=== PATIENT | male | born 2005 | race Caucasian/White ===

== ENCOUNTER 2025-10-16 15:47 | Outpatient (OUT) | payer OTHER, SELFPAY ==
--- OUTSIDE RECORDS SUMMARY | 2025-10-09 17:17 | XMS_ITS | Encounter Summary ---
Author Organization [facility] [employer] [facility] tem Address [id number] [address] [place] [address] Care Team Providers Care Gore Seamer Name Role Phone Julian Carroll MD Primary Care Provider Reason for Visit * ReasonCommentsFall Encounter Details DateTypeDepartmentCare Team (Latest Contact Info)Xfscltoipui31/25/2025 5:17 PM EST - 10/09/2025 6:41 PM [facility] [address] [place] [phone] Closed fracture of nasal bone, initial encounter (Primary Dx); Effusion of right knee Discharge Disposition: Home Social History Tobacco UseTypesPacks/DayYears UsedDateSmoking Tobacco: NeverSmokeless Tobacco: NeverAlcohol UseStandard Drinks/WeekCommentsNever0 (1 standard drink = 0.6 oz pure alcohol)AUDIT-CAnswerDate RecordedFrequency of Alcohol ConsumptionNever 08/03/2019Average Number of DrinksNot on file08/03/2019Frequency of Binge DrinkingNot on file08/03/2019ChildcareAnswerDate RecordedChildcareUnknown 04/24/2019EmploymentAnswerDate YvlgsygmQpdtvgnquoAepavtm84/10/2019Hunger ScreeningAnswerDate RecordedWithin the past 12 months we worried whether our food would run out before we got money to buy more.Never True10/09/2025Within the past 12 months the food we bought just didn't last and we didn't have money to get more.Never True10/09/2025Purpose - LifeAnswerDate RecordedPurpose and direction in vmrsHtvmcbv85/10/2021ex and Gender InformationValueDate Recorded Sex Assigned at BirthNot on fileLegal LyuBrvs2506/18/2015 2:22 PM EDTGender IdentityNot on fileSexual OrientationNot on filedocumented as of this encounter Last Filed Vital Signs Vital SignReadingTime TakenCommentsBlood Oebxbnyq228/7610/09/2025 6:30 PM EST Pingb317510/09/2025 6:30 PM VFLByojuhjwmqe10.5 ??C (97.7 ??F)10/09/2025 5:22 PM ESTRespiratory Txbf656812/09/2024 6:30 PM ESTOxygen Qurpozitrx55%10/09/2025 6:30 PM ESTInhaled Oxygen Concentration--Vnrjrm34.4 kg (214 lb 11.2 oz)10/09/2025 5:22 PM ZJBQafsbs401.7 cm (6' 7 )10/09/2025 5:22 PM ESTBody Mass Index24.19 10/09/2025 5:22 PM ESTdocumented in this encounter Discharge Instructions * Discharge Instructions* CORNELIUS Nieto - 10/09/2025 6:31 PM EST Thank you for choosing us for your medical care. We know you have a choice, and we appreciate you choosing us for your medical concerns! You may receive a survey from the hospital about your visit. We very much appreciate your comments and concerns. Please read all medication insert instructions and side effects when dispensed by the pharmacy. Every medication has side effects, and you may experience any of them. Please call the emergency room with any questions or concerns you have. Please call your doctor for outpatient follow up and recommendations. The emergency room cannot replace ongoing care, and it is important for your personal physician to evaluate you and monitor your health. Return to the ER for increased pain, fever > 101.5, vomiting twice, or any concern you deem emergent. Oliva Kitchen CNP documented in this encounter ED Notes * CORNELIUS Nieto - 10/09/2025 5:22 PM EST Images from the original note were not included. [facility] Pt Name: Lance Marie Birthdate: 2005 Chief Complaint: Chief Complaint Patient presents with ??? Fall History of Present Illness: Lance Marie is a 20-year-old male that presents to ED with complaint of nose pain and right kneepain. 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 He states he started to feel lightheaded in like he was going to pass out so he came to the nurse's station. He states then he went to the bathroom to/cold wate r on himself. He states he then sat down to use the restroom and he woke up face down on the ground. Staff was able to assist him to a room. He states he felt like he had another syncopal event then.He was watch for awhile then discharged to go home. History provided by: Patient geography faculty member used: No Past Medical History: Past Medical History: Diagnosis Date ??? Syncopal episodes 06/2019 Past Surgical History: Past Surgical History: Procedure Laterality Date ??? CIRCUMCISION ??? INGUINAL HERNIA REPAIR Family History: Family History Problem Relation Age of Onset ??? Thyroid Issues Mother ??? Migraines Mother ??? Down syndrome Maternal Aunt ??? Stroke Maternal Aunt ??? Thyroid Issues Maternal Aunt ??? Hypertension Maternal Grandmother ??? High Cholesterol Maternal Grandmother ??? Hypertension Maternal Grandfather ??? High Cholesterol Maternal Grandfather ??? Arrhythmia Paternal Grandmother pacer ??? Heart defect Neg Hx ??? Seizures Neg Hx ??? Diabetes Neg Hx ??? Asthma Neg Hx ??? Heart attack Neg Hx ??? Sudden Neg Hx ??? Clotting disorder Neg Hx Social History: Social History Socioeconomic History ??? Marital status: Single Tobacco Use ??? Smoking status: Never ??? Smokeless tobacco: Never Vaping Use ??? Vaping status: Never Used Substance and Sexual Activity ??? Alcohol use: Never ??? Drug use: Never ??? Sexual activity: Defer Other Topics Concern ??? Caffeine Use No Social Drivers of Health Food Insecurity: No Food Insecurity (10/09/2025) Hunger Screening ??? Food Insecurity - Worry: Never True ??? Food Insecurity - Inability: Never True Interpersonal Safety: Not At Risk (10/11/2022) Humiliation, Afraid, Rape, and Kick questionnaire ??? Fear of Current or Ex-Partner: No ??? Emotionally Abused: No ??? Physically Abused: No ??? Sexually Abused: No Review of Systems: Review of Systems Constitutional: Negative for chills and fever. HENT: Negative for ear pain. Nasal pain Eyes: Negative for pain. Respiratory: Negative for shortness of breath. Cardiovascular: Negative for chest pain/discomfort. Gastrointestinal: Negative for abdominal pain, diarrhea, nausea and vomiting. Genitourinary: Negative for flank pain. Musculoskeletal: Negative for back pain. Skin: Negative for rash. Neurological: Negative for headaches. Psychiatric/Behavioral: Negative for sleep disturbance and suicidal ideas. Physical Exam: ED Triage Vitals Temp Pulse Resp BP SpO2 -- -- -- -- -- Temp src Heart Rate Source Patient Position BP Location FiO2 (%) -- -- -- -- -- Vitals: 10/09/25 1722 BP: (!) 138/93 Temp: 36.5 ??C (97.7 ??F) TempSrc: Oral Pulse: 54 Resp: 18 SpO2: 99% MAP (mmHg): 111 Height: 200.7 cm (6' 7 ) Weight: 97.4 kg (214 lb 11.2 oz) Physical Exam Vitals reviewed. HENT: Head: Normocephalic and atraumatic. Nose: Nasal tenderness present. Comments: Nasal swelling Eyes: Conjunctiva/sclera: Conjunctivae normal. Cardiovascular: Rate and Rhythm: Normal rate. Pulmonary: Effort: Pulmonary effort is normal. Breath sounds: Normal breath sounds. Abdominal: General: There is no distension. Palpations: Abdomen is soft. Musculoskeletal: General: Normal range of motion. Cervical back: Normal range of motion and neck supple. Right knee: Tenderness present. Skin: General: Skin is warm and dry. Neurological: General: No focal deficit present. Mental Status: He is alert and oriented to person, place, and time. GCS: GCS eye subscore is 4. GCS verbal subscore is 5. GCS motor subscore is 6. Procedure: Procedures Re-evaluation: Re-Evaluation Medical Decision Making Plan of care - CT facial bones Amount and/or Complexity of Data Reviewed Radiology: ordered. Decision-making details documented in ED Course. ED Course: Clinical Impressions as of 10/09/251830 Closed fracture of nasal bone, initial encounter Effusion of right knee . ED Disposition None DAYANNA Supervision Only Supervising Physician was Dr. Keisha Garner Please note that portions of this note were completed with a voice recognition program. Efforts were made to edit the dictations but occasionally words are mis-transcribed. CORNELIUS Nieto 10/09/25 1727 CORNELIUS Nieto 10/09/25 173 CORNELIUS Nieto 10/09/251947 * Maira Menendez RN - 10/09/2025 5:21 PM EST Pt states he was watching procedure and began feeling dizzy yesterday. Pt states that he went to bathroom and woke up after falling on ground with hurt nose. documented in this encounter Plan of Treatment Not on file documented as of this encounter Procedures Procedure NamePriorityDate/TimeAssociated DiagnosisCommentsCT FACIAL BONES WO AHGXMJDD06/25/2025 6:15 PM EST XR KNEE RT 3 IHRZWQV35/25/2025 6:12 PM EST documented in this encounter Results * CT facial bones without contrast (10/09/2025 6:15 PM EST)Anatomical Region LateralityModalityNeuro, Face, Neuro CoveraN/AComputed TomographySpecimen (Source)Anatomical Location / LateralityCollection Method / VolumeCollection TimeReceived Time10/09/2025 6:16 PM EST Narrative 10/09/2025 6:26 PM EST EXAM: MAXILLOFACIAL CT WITHOUT CONTRAST CLINICAL INFORMATION: Fall. TECHNIQUE: Maxillofacial CT was performed without contrast utilizing thin section imaging with coronal and sagittal reformatted images obtained and reviewed. Automated exposure control was utilized. COMPARISON: None. FINDINGS: There are acute minimally displaced nasal bone fractures. No additional convincing maxillofacial fractures are identified. There is moderate lobulated mucosal thickening lining the maxillary sinuses.There is mild nonaggressive mucosal thickening within the ethmoids. There is minimal nonaggressive mucosal thickening lining the sphenoid sinuses. The frontal sinuses are clear and well aerated. There is no evidence for osseous remodeling. The middle and inferior turbinates are unremarkable. Thereis no significant deviation of the nasal septum. The visualized mastoids are clear. IMPRESSION: 1. Acute minimally displaced nasal bone fractures. 2. Moderate paranasal sinus disease, as above. All CT scans at this facility use dose modulation, iterative reconstruction, and/or weight based dosing when appropriate to reduce radiation dose to as low as reasonably achievable. Finalized by Sylvester Shabazz MD on 10/09/2025 6:26 PM Procedure Note Sylvester Shabazz MD - 10/09/2025 EXAM: MAXILLOFACIAL CT WITHOUT CONTRAST CLINICAL INFORMATION: Fall. TECHNIQUE: Maxillofacial CT was performed without contrast utilizing thinsection imaging with coronal and sagittal reformatted images obtained andreviewed. Automated exposure control was utilized. COMPARISON: None. FINDINGS: There are acute minimally displaced nasal bone fractures. No additional convincing maxillofacial fractures are identified. There is moderatelobulated mucosal thickening lining the maxillary sinuses. There is mildnonaggressive mucosal thickening within the ethmoids. There is minimalnonaggressive mucosal thickening lining the sphenoid sinuses. The frontal sinuses areclear and well aerated. There is no evidence for osseous remodeling. Themiddle and inferior turbinates are unremarkable. There is no significantdeviation of the nasal septum. The visualized mastoids are clear. IMPRESSION: 1. Acute minimally displaced nasal bone fractures. 2. Moderate paranasal sinus disease, as above. All CT scans at this facility use dose modulation, iterativereconstruction, and/or weight based dosing when appropriate to reduceradiation dose to as low as reasonably achievable. Finalized by Sylvester Shabazz MD on 10/09/2025 6:26 PM Authorizing ProviderResult TypeResult StatusAmber Kitchen MINILAB OPERATOR-CNPIMG CT ORDERABLESFinal Result * X-ray knee right 3 views (10/09/2025 6:12 PM EST)Anatomical RegionLaterality ModalityLower Extremities, MSK, KneeRightComputed RadiographySpecimen (Source) Anatomical Location / LateralityCollection Method / VolumeCollection Time Received Time10/09/2025 6:14 PM EST Narrative 10/09/2025 6:15 PM EST Clinical history: Status post fall, right knee trauma and pain. Comparisons: None Findings: 3 views right knee obtained. Joint spaces are preserved. There is no malalignment. No acute fracture. There is some ill-defined soft tissue stranding within Hoffa's fat pad and I suspect there is a small joint effusion. IMPRESSION: 1. No fracture nor malalignment right knee. 2. Suspect small joint effusion. There is also some soft tissue stranding with some office fat pad;clinical correlation for internal arrangement recommended. Finalized by Juan Nieto MD on 10/09/2025 6:15 PM Procedure Note Juan Nieto MD - 10/09/2025 Clinical history: Status post fall, right knee trauma and pain. Comparisons: None Findings: 3 views right knee obtained. Joint spaces are preserved. Thereis no malalignment. No acute fracture. There is some ill-defined softtissue stranding within Hoffa's fat pad and I suspect there is a smalljoint effusion. IMPRESSION: 1. No fracture nor malalignment right knee. 2. Suspect small joint effusion. There is also some soft tissue strandingwith some office fat pad; clinical correlation for internal arrangementrecommended. Finalized by Juan Nieto MD on 10/09/2025 6:15 PM Authorizing ProviderResult TypeResult StatusAmber Kitchen MINILAB OPERATOR-CNPIMG DIAGNOSTIC IMAGING ORDERABLESFinal Result documented in this encounter Visit Diagnoses Diagnosis Closed fracture of nasal bone, initial encounter- Primary Effusion of right knee documented in this encounter Care Teams Team MemberRelationshipSpecialtyStart DateEnd Date Julian Carroll MD [address] [place] [id number] PCP - GeneralFamily Medicine07/21/19documented as of this encounter
--- NOTE | 2025-10-16 | ECG_ITS ---
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 Measurements Intervals [place] Rate: 50 P: 0 AL: 149 QRS: 87 QRSD: 109 T: 66 QT: 409 QTc: 376 Interpretive Statements SINUS BRADYCARDIA INCOMPLETE RIGHT BUNDLE BRANCH BLOCK [90+ ms QRS DURATION, TERMINAL R IN V1/V2, 40+ ms S IN I/aVL/V4/V5/V6] Compared to ECG 10/11/2022 03:55:33 Incomplete right bundle-branch block now present Q waves no longer present Electronically Signed On 10-17-2025 19:47:38 EST by AL GARCIA M.D.
--- OUTSIDE RECORDS SUMMARY | 2025-10-16 09:24 | XMS_ITS | Continuity of Care Document ---
Author Organization [facility] Address [address] [place] [address] Phone Care Team Providers Care Mail Order Biller Name Role Phone Julian Carroll MD Primary Care Provider [phone] Julian Carroll MD Attending Provider [phone] Danial Lopez Attending Provider Unavailable Care Teams Patient Care Team Team Status: Active Member Role/Relationship Status Dates Julian Carroll MD Primary Care Provider Active Visit Care Team Team Status: Inactive Member Role/Relationship Status Dates Julian Carroll MD Primary Care Provider Active S tart: August 16, 2025 End: August 16, 2025Tammi Wall ProviderActiveStart: August 16, 2025 End: August 16, 2025 Visit Care Team Team Status: Active Member Role/Relationship Status Dates Julian Carroll MD Primary Care Provider Active S tart: October 10, 2025 Tammi Wall ProviderActiveStart: October 10, 2025 Visit Care Team Team Status: Active Member Role/Relationship Status Dates Julian Carroll MD Primary Care Provider Active S tart: October 10, 2025 Danial LopezAttemely ProviderActiveStart: October 10, 2025 Patient Care Team Team Status: Inactive Member Role/Relationship Status Dates Julian Carroll MD Primary Care Provider Active S tart: October 16, 2025 End: October 16, 2025Tammi Wall ProviderActiveStart: October 16, 2025 End: October 16, 2025 Chief Complaint and Reason for Visit Chief Complaint Admit Date est patient August 16, 2025 3: 08pm Referral Order October 10, 2025 1:54pm Amb Documentation October 10, 2025 1:58pm lightheaded from broken nose over a week ago October 16, 2025 1:45pm Reason for Visit Admit Date Annual physical exam August 16, 2025 3 :08pm Reason for Referral Type Reason(s) Provider Provider Contact Information P hansavider Address Start Date Closed fracture of nasal bone S02.2XXA - Fracture of nasal bones, initial encounter for closed fracture S02.2XXA - Fracture of nasal bones, initial encounter for closed fractureHANNARY ZACHARY GONZALEZ ORDER- MULTIPLE OFFICES [facility] 2024 Allergies, Adverse Reactions, Alerts Allergen Type Severity Reaction Last Updated Verified Status No Known Allergies Allergy Unknown August 16, 2025 2:13pmYesActive Social History Smoking Status Status Start Date End Date Date of Observa tion Never smoked tobacco (finding) August 16, 2025 3:14pm Observation Status Observation Response Date of Response Legal Sex Male (finding) Sex Assigned At [facility] 2004 Problems Active Problems Problem Diagnosis/Recorded Date Onset Date Stat us Nasal bones, closed fracture October 10, 2025 1:54p m Unknown Active 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 August 15, 2025 1:21pm Unknown Active Chronic migraine without aur a without status migrainosus, not intractable August 15, 2025 1:21pm Unknown Active Allergic rhinitis due to pollen August 15, 2025 1:21 pm Unknown Active Annual physical exam August 16, 2025 2:45pm Unknown Active Inactive/Resolved Problems Problem Diagnosis/Recorded Date Onset Date Stat us Pain in thumb joint with mov ement of left hand October 31, 2024 12:32pm Unknown Resolved Sialadenitis August 15, 2025 1:22pm Unknown Res olved Left thumb sprain October 31, 2024 1:01pm Unknown Resolved Medications Medication Status Dose Units Route Directions Qty Days Refills S tart Date Stop Date End Date Reason(s) Instructions Adherence Wrist Brace With Thumb Spica unit Active 0 .Qwzjl28Nwyutdzf 2023 12:00amAs directedNaproxen 500 mg tabletDiscontinued 500MGPOTwice daily as needed for usay68577Sihcdxnz 2023 12:00amOctober 2024 1:22pm Vital Signs Vital Reading Result Reference Range Collection Date/Time Height 79 [in_i] August 16, 2025 2:05ohOqtlwk88.67 kgOct2024 2:11pmBody Temperature 98.6 [degF]97.6-99.0Oct2024 2:11pmHeart Rate62 /iuy46-999Notbldh 2nd, 2025 2:11pmRespiratory rate18 /bvf72-85Rsuoxnz 2nd, 2025 2:11pmOxygen saturation by Pulse mwppxefz99 %95-100Oct2024 2:11pmBP Atwcelmb317 mm[Hg]100-140 August 16, 2025 2:11pmBP Zepjmldjl93 mm[Hg]60-100Oct2024 2:11pmBMI (Body Mass Index)24.0 kg/i1Vpeurnn2024 2:11pm Advance Directives Advance Directive Response Recorded Date/ Time Advance Directives No October 11:47am Insurance Providers Guarantor Lance Tejada Mcmaster Address [address] [place] [place] [address]Dpqzhsu Info.Home Phone: Coverage Status Update:2024 Payer Group Member ID Coverage Type Subscriber Relationship to Subscriber Effective Date Expiration Date [facility] Id: [id number] [address] [place] [address] Home Phone: Email: [email or web address] Encounters Encounter Location(s) Arrival/Admit Date Discharge/Departure Date Discharge/Departure Disposition Provider(s) Departed Physician/ Provider Office Visit -[facility] Family Medicine Vitor August 16, 2025 3:08pm August 16, 2025 3:42pm Discharged to home care or self care (routine discharge) Julian Carroll MD Non-patient / Non-visit -[facility] Professional Co N ovember 2024 1:54pm Julian Carroll MDNon-patient / Iea-rieiy-IKN Family Medicine HéctorKareem 2024 1:58pmSaisaac LopezDebilly Physician/Provider Office Visit-[facility] Family Medicine Iza 2024 1:45pmDecember 2024 2:22pmDischarged to home care or self care (routine discharge)Julian Carroll MD Recent Diagnosis Onset Date Admit Date Annual physical exam Unknown August 3:08pm Assessments Diagnosis Onset Date Resolution Status Admit Date Annual physical exam acuteOctober 2024 3:08pm Plan of Treatment Author Julian Carroll [facility] HospitalAuthoredOctober 2024 2:46pmForm completed for school. Titers for hep B negative and will need repeat vaccine series then titers. Discussed proper diet and regular aerobic exercise.?? Need aerobic exercise 5-6 days a week for 30 minutes at a time.?? Smaller portions and limit total calories.?? Colonoscopy after age 45.?? Tetanus every 10 years.?? Advised not to smoke.?? Future Tests Future scheduled test information is unavailable Pending Tests Pending diagnostic test information is unavailable Future Visits Future appointment information is unavailable Future Procedures Future procedure information is unavailable Future Medications Future medication information is unavailable Patient Instructions Patient instructions are unavailable
--- OUTSIDE RECORDS SUMMARY | 2025-10-16 14:40 | XMS_ITS | Encounter Summary ---
Author Organization [facility] Address [address] [place] [address] Care Team Providers Care Fitness Professional Name Role Phone Julian Carroll MD Primary Care Provider [phone] Reason for Visit * ReasonCommentsNose ProblemNasal bone fracture ER/CT [facility] 10/09/25 * Consultation (Routine) - ClosedSpecialtyDiagnoses / ProceduresReferred By ContactReferred To ContactOtolaryngology Diagnoses Nasal bones, closed fracture Procedures [place] [facility] Julian Carroll MD [address] [place] [address] Phone: tel: fax: Carina Smith MD [address] [place] [address] Phone: tel: fax: Referral IDStatusReasonStart DateExpiration DateVisits RequestedVisits [id number]/26/20255/ Encounter Details DateTypeDepartmentCare Team (Latest Contact Info)Cwfxzuhcyxm82/02/2025 2:40 PM ESTOffice Visit [facility] [address] [facility] [address] [place] [address] Carina Smith MD 112 [facility] [address] [place] [address] Closed fracture of nasal bone, initial encounter (Primary Dx); Vasovagal syncope; Hypertension, unspecified type Social History Tobacco UseTypesPacks/DayYears UsedDateSmoking Tobacco: NeverSmokeless Tobacco: NeverSex and Gender InformationValueDate RecordedSex Assigned at BirthNot on fileLegal JkhQnyi4901/27/2023 6:48 PM EDTGender IdentityNot on fileSexual OrientationNot on filedocumented as of this encounter Last Filed Vital Signs Vital SignReadingTime TakenCommentsBlood Rwonaajt247/2953710/16/2025 2:33 PM EST Oqvyn938810/16/2025 2:33 PM ESTTemperature--Respiratory Rate--Oxygen Saturation-- Inhaled Oxygen Concentration--Vxhwhr42.6 kg (213 lb)10/16/2025 2:33 PM ESTHeight 200.7 cm (6' 7 )10/16/2025 2:33 PM ESTBody Mass Idpuw586710/16/2025 2:33 PM EST documented in this encounter Progress Notes * Carina Smith MD - 10/16/2025 2:40 PM EST Subjective Patient ID: Lance Marie is a 20 y.o. male who presents for Nose Problem (Nasal bone fracture ER/CT [facility] 10/09/25) Pt reports 10/08 pt was sitting at work in the [facility] ED and passed out striking his face. Pt has a h/o frequent passing out in the past. Had an extensive cardiac W/U that revealed no sig abnormality. Had not passed out for [address] maxillofacial obtained that shows a mildly displaced nasal fx to the left. Mildly congested. Pt feels nose more deviated Review of Systems All other systems reviewed and are negative. Family History[1] Active Ambulatory Problems Diagnosis Date Noted Adolescent idiopathic scoliosis of thoracic region 03/21/2024 Chronic migraine without aura without status migrainosus, not intractable 03/21/2024 Allergic rhinitis due to pollen 03/21/2024 Sialadenitis 03/21/2024 Annual physical exam 2025 Left thumb sprain 10/15/2025 Nasal bones, closed fracture 10/15/2025 Pain in thumb joint with movement of left hand 10/15/2025 Resolved Ambulatory Problems Diagnosis Date Noted No Resolved Ambulatory Problems Past Medical History: Diagnosis Date Fracture of nasal bones Surgical History[2] Allergies[3] Medications Ordered Prior to Encounter[4] Objective Last Recorded Vitals Vitals: 10/16/25 1433 BP: (!) 137/113 Pulse: 56 ENT Physical Exam Constitutional Appearance: patient appears well-developed and well-nourished, Head and Face Appearance: head appears normal; Ear Ear comments: Codey ears normal Nose External Nose: nares patent bilaterally; nasal deformity visible; Internal Nose: nasal mucosa normal; Nose comments: Nose displaced to the left. No septal hematoma Oral Cavity/Oropharynx Lips: normal; Teeth: normal; Gums: gingiva normal; Tongue: normal; Oral mucosa: normal; Hard palate: normal; Neck Neck: neck normal; neck palpation normal; Thyroid: thyroid normal; Respiratory Inspection: breathing unlabored; normal breathing rate; Auscultation: breath sounds are clear; Cardiovascular Inspection: extremities are warm and well perfused; no peripheral edema present; Auscultation: regular rate and rhythm; Assessment/Plan Diagnoses and all orders for this visit: Closed fracture of nasal bone, initial encounter Pt has a displaced nasal fx. We will plan a closed reduction of nasal fracture. Pt expresses understanding that there could be some residual deformity and he may want a rhinoplasty in the future. Addan EKG due to syncopal episode and elevated BP. Pt has appt with PCP tomorrow to address BP [1] No family history on file. [2] Past Surgical History: Procedure Laterality Date CT ANGIOGRAM HEART CORONARY 07/22/2023 CT ANGIOGRAM HEART CORONARY 07/22/2023 HERNIA REPAIR 2018 MR ANGIOGRAM HEAD WO IV CONTRAST 09/07/2019 MR ANGIOGRAM HEAD WO IV CONTRAST 09/07/2019 [3] No Known Allergies [4] Current Outpatient Medications on File Prior to Visit Medication Sig Dispense Refill ondansetron (Zofran) 4 MG tablet Take by mouth No current facility-administered medications on file prior to visit. documented in this encounter Miscellaneous Notes * Addendum Note - Luna Chairez MA - 10/16/2025 2:40 PM ESTAddended by: LUNA CHAIREZ on: 10/16/2025 03:31 PM Modules accepted: Orders documented in this encounter Plan of Treatment NameTypePriorityAssociated DiagnosesOrder ScheduleCBC and differentialLabRoutine Closed fracture of nasal bone, initial encounter Expected: 10/16/2025 (Approximate), Expires: 10/16/2026ECG 12 leadECGRoutine Closed fracture of nasal bone, initial encounter Expected: 10/16/2025 (Approximate), Expires: 10/16/2026documented as of this encounter Visit Diagnoses Diagnosis Closed fracture of nasal bone, initial encounter- Primary Vasovagal syncope Syncope and collapse Hypertension, unspecified type documented in this encounter Care Teams Team MemberRelationshipSpecialtyStart DateEnd Date Julian Carroll MD [address] [place] [address] PCP - GeneralFamily Vrthhzqc37/1/25documented as of this encounter
--- OUTSIDE RECORDS SUMMARY | 2025-10-16 15:58 | XMS_ITS | Encounter Summary ---
Author Organization [facility] Address [address] [facility] [place] [address] Care Team Providers Care Rn Residential Name Role Phone Julian Carroll MD Primary Care Provider [phone] Encounter Details DateTypeDepartmentCare Team (Latest Contact Info)Chnsfdvlzpj96/02/2025Travel Social History Tobacco UseTypesPacks/DayYears UsedDateSmoking Tobacco: NeverSmokeless Tobacco: NeverSex and Gender InformationValueDate RecordedSex Assigned at BirthNot on fileLegal CdkFvpw0301/27/2023 6:48 PM EDTGender IdentityNot on fileSexual OrientationNot on filedocumented as of this encounter Plan of Treatment Not on file documented as of this encounter Visit Diagnoses Not on filedocumented in this encounter Care Teams Team MemberRelationshipSpecialtyStart DateEnd Date Julian Carroll MD [address] [place] [address] PCP - GeneralFamily Llntdrje73/1/25documented as of this encounter
--- OUTSIDE RECORDS SUMMARY | 2025-10-16 15:58 | XMS_ITS | Encounter Summary ---
Author Organization [employer] [facility] tem Address [facility] [address] [place] [address] Care Team Providers Care Rack Puller Name Role Phone Julian Carroll MD Primary Care Provider [phone] Encounter Details DateTypeDepartmentCare Team (Latest Contact Info)Eyaipqrdmrx05/25/2025Travel Social History Tobacco UseTypesPacks/DayYears UsedDateSmoking Tobacco: NeverSmokeless Tobacco: NeverAlcohol UseStandard Drinks/WeekCommentsNever0 (1 standard drink = 0.6 oz pure alcohol)AUDIT-CAnswerDate RecordedFrequency of Alcohol ConsumptionNever 08/03/2019Average Number of DrinksNot on file08/03/2019Frequency of Binge DrinkingNot on file08/03/2019ChildcareAnswerDate RecordedChildcareUnknown 04/24/2019EmploymentAnswerDate UkybzmfbLdrwlwkeqtBcbyfka48/10/2019Hunger ScreeningAnswerDate RecordedWithin the past 12 months we worried whether our food would run out before we got money to buy more.Never True10/09/2025Within the past 12 months the food we bought just didn't last and we didn't have money to get more.Never True10/09/2025Purpose - LifeAnswerDate RecordedPurpose and direction in gtwhAgcpaoj90/10/2021Sex and Gender InformationValueDate Recorded Sex Assigned at BirthNot on fileLegal HnnBfpc7606/18/2015 2:22 PM EDTGender IdentityNot on fileSexual OrientationNot on filedocumented as of this encounter Plan of Treatment Not on file documented as of this encounter Visit Diagnoses Not on filedocumented in this encounter Care Teams Team MemberRelationshipSpecialtyStart DateEnd Date Julian Carroll MD [address] [place] [address] PCP - GeneralFamily Medicine07/21/19documented as of this encounter
--- OUTSIDE RECORDS SUMMARY | 2025-10-16 15:58 | XMS_ITS | Clinical Summary ---
Author Organization [facility] tem Address [facility] [place] [address] Care Team Providers Care Loader Engineer Name Role Phone Julian Carroll MD Primary Care Provider [phone] Allergies No known active allergies Medications No known medications Active Problems ProblemNoted DateDiagnosed DateGeneralized abdominal pain12/22/2022Syncopal rsaanqqi94/27/2022yncope, unspecified syncope type10/11/2022eizure-like /11/2019Migraine with aura, not ouyojaavakk05/11/2019Dizziness 08/25/2019 Encounters DateTypeDepartmentCare MwizUvgktvxvtcs16/25/2025 5:17 PM EST - 10/09/2025 6:41 PM ESTEmergency [facility] [address] [place] [phone] Closed fracture of nasal bone, initial encounter (Primary Dx); Effusion of right knee Discharge Disposition: Home10/09/2025Travelfrom Last 3 Months Family History Medical HistoryRelationNameCommentsDown syndromeMaternal AuntStrokeMaternal Aunt Thyroid IssuesMaternal AuntHigh CholesterolMaternal GrandfatherHypertension Maternal GrandfatherHigh CholesterolMaternal GrandmotherHypertensionMaternal GrandmotherMigrainesMotherThyroid IssuesMotherArrhythmiaPaternal Grandmother pacerAsthmaNeg HxClotting disorderNeg HxDiabetesNeg HxHeart attackNeg HxHeart defectNeg HxSeizuresNeg HxSudden deathNeg HxRelationNameStatusCommentsMaternal AuntMaternal GrandfatherMaternal GrandmotherMotherPaternal Grandmother Social History Tobacco UseTypesPacks/DayYears UsedDateSmoking Tobacco: NeverSmokeless Tobacco: Never Tobacco Cessation:Counseling Given: Not Answered Alcohol UseStandard Drinks/WeekCommentsNever0 (1 standard drink = 0.6 oz pure alcohol)AUDIT-CAnswerDate RecordedFrequency of Alcohol ConsumptionNever 08/03/2019Average Number of DrinksNot on file08/03/2019Frequency of Binge DrinkingNot on file08/03/2019ChildcareAnswerDate RecordedChildcareUnknown 04/24/2019EmploymentAnswerDate KwvvjorhNgjyktkhtkJdgygzm47/10/2019Hunger ScreeningAnswerDate RecordedWithin the past 12 months we worried whether our food would run out before we got money to buy more.Never True10/09/2025Within the past 12 months the food we bought just didn't last and we didn't have money to get more.Never True10/09/2025Purpose - LifeAnswerDate RecordedPurpose and direction in oymyTmjufzv78/10/2021ex and Gender InformationValueDate Recorded Sex Assigned at BirthNot on fileLegal AcgMgng0606/18/2015 2:22 PM EDTGender IdentityNot on fileSexual OrientationNot on file Last Filed Vital Signs Vital SignReadingTime TakenCommentsBlood Eqfhmnor528/7611 6:30 PM EST Bhcwk535910/09/2025 6:30 PM SYKBoqsnjhohlj41.5 ??C (97.7 ??F)10/09/2025 5:22 PM ESTRespiratory Lbzw233112/09/2024 6:30 PM ESTOxygen Hlarkwbfea91%10/09/2025 6:30 PM ESTInhaled Oxygen Concentration--Srnfeu46.4 kg (214 lb 11.2 oz)10/09/2025 5:22 PM UMIWoqqwn172.7 cm (6' 7 )10/09/2025 5:22 PM ESTBody Mass Index24.19 10/09/2025 5:22 PM EST Plan of Treatment Health MaintenanceDue DateLast DoneCommentsDepression Bkalgmprk98/25/2015COVID- 19 Vaccine (3 - season)506/07/2021, 04/01/2021Influenza Vaccine 501/3DTaP,Tdap and Td Vaccines (7 - Td or Tdap)06/05/2026 06/05/2016, 06/24/2009, 11/12/2004, Additional history existsAdult BMI Screening Tobacco Lqimrqsdo21 Medical Devices Not on file Procedures Procedure NamePriorityDate/TimeAssociated DiagnosisCommentsCT FACIAL BONES WO XSWWKHFH56/25/2025 6:15 PM EST XR KNEE RT 3 HTNGOII09/25/2025 6:12 PM EST from Last 3 Months Results * CT facial bones without contrast [...] 10/09/2025 6:26 PM Authorizing ProviderResult TypeResult StatusAmber [place] CAREER TECHNICAL EDUCATION INSTRUCTOR-CNPIMG CT ORDERABLESFinal Result * X-ray knee right [...] 10/09/2025 6:15 PM Authorizing ProviderResult TypeResult StatusAmber Imtiaz CAREER TECHNICAL EDUCATION INSTRUCTOR-CNPIMG DIAGNOSTIC IMAGING ORDERABLESFinal Result from Last 3 Months [facility] [address] * Guarantor: Lance MarieAccojagruti TypeRelation to PatientDate of PhoneBilling AddressWorkers OycyNakm[address] [place] [address] * Guarantor: Juliana Marie TypeRelation to PatientDate of BirthPhoneBilling AddressPersonal/OpdmnwJcrbsz77/12/1979 [address] [place] [address] Advance Directives * Full Code (Latest Code Status on File) Date ActivatedDate OqbdtbhkjwfBobaxpoz54/27/2022 2:12 PM10/11/2022 7:09 PM Care Teams Team MemberRelationshipSpecialtyStart DateEnd Date Julian Carroll MD [address] [place] [address] PCP - GeneralFamily Medicine07/21/19
--- OUTSIDE RECORDS SUMMARY | 2025-10-16 15:58 | XMS_ITS | Clinical Summary ---
Author Organization [facility] Address [address] [place] [address] Care Team Providers Care Director [place] Name Role Phone Julian Carroll MD Primary Care Provider [phone] Allergies No known active allergies Medications MedicationSigDispense QuantityRefillsLast FilledStart DateEnd DateStatus ondansetron (Zofran) 4 MG tablet Take by mouthActive Active Problems ProblemNoted DateDiagnosed DateLeft thumb rqcaxo5110/15/2025Nasal bones, closed vrlvbapi14/01/2025Pain in thumb joint with movement of left hand10/15/2025nnual physical exam2025dolescent idiopathic scoliosis of thoracic region 4Chronic migraine without aura without status migrainosus, not crfkjeasxwg59/07/2024Allergic rhinitis due to pyzcar4503/21/2024Sialadenitis 03/21/2024 Assessment & Plan (03/21/2024 9:55 AM EDT): Appears to be swollen salivary gland and treat with antibiotics. Use sour candy. If no improvement after treatment will check US and labs. Encounters DateTypeDepartmentCare FtsfPlinryhkavj77/02/2025 2:40 PM ESTOffice Visit [facility] [place] [facility] [address] [place] [phone] Carina Smith MD Closed fracture of nasal bone, initial encounter (Primary Dx); Vasovagal syncope; Hypertension, unspecified type10/16/2025amboo flowsheet [facility] [place] [facility] [address] [place] [address] Carina Smith MD 10/16/20253021Tkxpfz28/01/2025Orders Only [facility] [address] [place] [address] Unallocated, Nomnithya Holloway MD from Last 3 Months Immunizations ImmunizationAdministration DatesNext ZwhCDbC54/29/2004,2003DTaP / Hep B / IPV03/19/2004,2003DTaP, Wggbmuxqfjk83/10/2009Hep B, Adolescent or Pqpxhaosm2003Hep B, adult09/24/2025,08/23/2025Hib (PRP-T)11/12/2004, 03/19/2004,2003,2003IPV06/24/2009,2003Influenza, injectable, quadrivalent, preservative free11/19/2022MMR10Meningococcal MCV4O 06/05/2016Meningococcal JHS0H621PPD Test07/17/2025,2025Pneumococcal Conjugate PCV ,2003,2003Tdap112/10/2024,06/05/2016 Family History RelationNameStatusCommentsFatherAliveMotherAlive Social History Tobacco UseTypesPacks/DayYears UsedDateSmoking Tobacco: NeverSmokeless Tobacco: Never Tobacco Cessation:Counseling Given: Not Answered Sex and Gender InformationValueDate RecordedSex Assigned at BirthNot on file Legal JlkLqju8901/27/2023 6:48 PM EDTGender IdentityNot on fileSexual Orientation Not on file Last Filed Vital Signs Vital SignReadingTime TakenCommentsBlood Erzfxcxl339/0271110/16/2025 2:33 PM EST Eumzr667110/16/2025 2:33 PM HFTWziujosumkw15.6 ??C (97.8 ??F)03/21/2024 9:29 AM EDTRespiratory Yklt066703/21/2024 9:29 AM EDTOxygen Sdrjnyzdnq22%03/21/2024 9:29 AM EDTInhaled Oxygen Concentration--Nzlhnm83.6 kg (213 lb)10/16/2025 2:33 PM EST Howpob903.7 cm (6' 7 )10/16/2025 2:33 PM ESTBody Mass Lplmm596110/16/2025 2:33 PM EST Plan of Treatment Health MaintenanceDue DateLast DoneCommentsCOVID-19 Vaccine ( season) /07/2021, 04/01/2021Influenza Vaccine (#1)/03/2023 Pneumococcal Vaccine: Pediatrics (0 to 5 Years) and At-Risk Patients (6 to 64 Years)Aged Out08/26/2004, 2003, 2003No longer eligible based on patient's age to complete this topic Insurance Care Teams Team MemberRelationshipSpecialtyStart DateEnd Date Julian Carroll MD [address] [place] [address] PCP - GeneralFamily Cnozjmdv24/1/25
--- OUTSIDE RECORDS SUMMARY | 2025-10-16 15:58 | XMS_ITS | Encounter Summary ---
Author Organization [facility] Address [address] [place] [address] Care Team Providers Care Enrobing Machine Corder Name Role Phone Julian Carroll MD Primary Care Provider [phone] Encounter Details DateTypeDepartmentCare Team (Latest Contact Info)Ycpbbxkkhfz80/01/2025Orders Only [facility] [address] [place] [address] Unallocated, [facility] Provider, [address] [place], [place] [address] Social History Tobacco UseTypesPacks/DayYears UsedDateSmoking Tobacco: NeverSmokeless Tobacco: NeverSex and Gender InformationValueDate RecordedSex Assigned at BirthNot on fileLegal IluCevt7301/27/2023 6:48 PM EDTGender IdentityNot on fileSexual OrientationNot on filedocumented as of this encounter Plan of Treatment Not on file documented as of this encounter Visit Diagnoses Not on filedocumented in this encounter Care Teams Team MemberRelationshipSpecialtyStart DateEnd Date Julian Carroll MD [address] [place] [address] PCP - GeneralFamily Uuivsqcv85/1/25documented as of this encounter
--- OUTSIDE RECORDS SUMMARY | 2025-10-16 15:58 | XMS_ITS | Encounter Summary ---
Author Organization [facility] Address [address] [place] [address] Care Team Providers Care Substation Wireman Name Role Phone Julian Carroll MD Primary Care Provider [phone] Encounter Details DateTypeDepartmentCare Team (Latest Contact Info)Srxtxgnobtf93/02/2025amboo flowsheet [facility] [place] [facility] [address] [place] [address] Carina Smith MD [address] [place], [place] [address] Social History Tobacco UseTypesPacks/DayYears UsedDateSmoking Tobacco: NeverSmokeless Tobacco: NeverSex and Gender InformationValueDate RecordedSex Assigned at BirthNot on fileLegal TotUfzj6601/27/2023 6:48 PM EDTGender IdentityNot on fileSexual OrientationNot on filedocumented as of this encounter Plan of Treatment Not on file documented as of this encounter Visit Diagnoses Not on filedocumented in this encounter Care Teams Team MemberRelationshipSpecialtyStart DateEnd Date Julian Carroll MD [address] [place] [address] PCP - GeneralFamily Vhvuleme12/1/25documented as of this encounter
--- OUTSIDE RECORDS SUMMARY | 2025-10-16 15:58 | XMS_ITS | Clinical Summary ---
Author Organization [facility] Address [address] [facility], [address] [place] [address] Care Team Providers Care Sole Rougher Name Role Phone Julian Carroll MD Primary Care Provider + Allergies No known active allergies Medications MedicationSigDispense QuantityRefillsLast FilledStart DateEnd DateStatus Multiple Vitamins-Minerals (MULTIVITAMIN ADULTS PO) Take by mouthActive naproxen (NAPROSYN) 500 MG tablet Indications:Scrotal injury, initial encounterTake 1 tablet by mouth 2 times daily (with meals) 60 tablet Active Active Problems No known active problems Social History Tobacco UseTypesPacks/DayYears UsedDateSmoking Tobacco: NeverSmokeless Tobacco: NeverAlcohol UseStandard Drinks/WeekCommentsNo0 (1 standard drink = 0.6 oz pure alcohol)Sex and Gender InformationValueDate RecordedSex Assigned at BirthNot on fileLegal LgjEuas6608/12/2018 12:58 AM EDTGender IdentityNot on fileSexual OrientationNot on file Last Filed Vital Signs Vital SignReadingTime TakenCommentsBlood Afwokiwj204/6911 5:16 PM EDT Szphh7615 5:15 PM UTZNtgryxplbhp65 ??C (98.6 ??F)01/30/2019 8:10 AM EDT Respiratory Tlsj7731 5:14 PM EDTOxygen Aufiovjqms438%09/16/2018 5:15 PM EDTInhaled Oxygen Concentration--Nkfsnh86.4 kg (175 lb)01/30/2019 8:10 AM EDT Gylznv067.9 cm (6' 5.5 )01/30/2019 8:10 AM EDTBody Mass Index20.4903 8:10 AM EDT Plan of Treatment Not on file Insurance Care Teams Team MemberRelationshipSpecialtyStart DateEnd Date Julian Carroll MD [address] [place] [address] PCP - GeneralFamily Medicine08/12/18
--- OUTSIDE RECORDS SUMMARY | 2025-10-16 15:58 | XMS_ITS | Clinical Summary ---
Author Organization [facility] Address [address] [place], [place] [address] Care Team Providers Care Rn Child Name Role Phone Julian Carroll MD Primary Care Provider [phone] Allergies No known active allergies Medications MedicationSigDispense QuantityRefillsLast FilledStart DateEnd DateStatus metoprolol tartrate, short acting, (LOPRESSOR) 50 mg tablet Take one 50 mg tablet the evening prior to the CTA examination, take another 50 mg tablet the morning of the CTA examination. 2 tablet 07/05/2023ctive nitroglycerin sublingual (NITROQUICK) 0.3 mg SL tablet Dissolve 1 tablet under the tongue one time only for 1 dose. To be administered in Radiology for CTA exam 1 tablet 07/05/2023ctive Active Problems No known active problems Family History Medical HistoryRelationCommentsStrokeMaternal AuntHyperlipidemiaMaternal GrandfatherHypertensionMaternal GrandfatherHyperlipidemiaMaternal Grandmother HypertensionMaternal GrandmotherHeartPaternal GrandmotherPacemakerHeart Failure Paternal GrandmotherRelationStatusCommentsMaternal AuntAliveMaternal Grandfather Maternal GrandmotherPaternal Grandmother Social History Tobacco UseTypesPacks/DayYears UsedDateSmoking Tobacco: NeverSmokeless Tobacco: NeverAlcohol UseStandard Drinks/WeekCommentsNever0 (1 standard drink = 0.6 oz pure alcohol)Area Deprivation IndexAnswerDate RecordedNational Score (1-100), lower number is lower ucqv840607/05/2023State Score (1-10), lower number is lower fazt70007/05/2023ata from: https://www.neighborhoodatlas.medicine.[facility].edu/. Last address used for [address]Sex and Gender InformationValueDate RecordedSex Assigned at BirthNot on fileLegal SexMale 02/20/2019 12:12 PM EDTGender IdentityNot on fileSexual OrientationNot on file Last Filed Vital Signs Vital SignReadingTime TakenCommentsBlood Zrperziy181/6109 3:08 PM EDT Zlebx3432/07/2023 3:08 PM EDTpost scan rszrkeXutrkajdyrm10.4 ??C (97.5 ??F) 08/06/2020 9:59 AM EDTRespiratory Jnih004403/30/2019 2:00 PM EDTOxygen Saturation 100%03/30/2019 2:00 PM EDTInhaled Oxygen Concentration--Ghnmdo96.7 kg (200 lb) 07/22/2023 2:45 PM LLALjjhda314.7 cm (6' 7 )07/22/2023 2:45 PM EDTBody Mass Index22.5309 2:45 PM EDT Plan of Treatment Health MaintenanceDue DateLast DoneCommentsPeds To Adult Transition Initial Zdiqosyjps09/25/2015Peds To Adult Transition Annual Wtpjjscgog95/25/2017HPV Vaccine (1 - Male 3-dose series)2018Meningococcal B Vaccine (1 of 2 - Standard)2019Anxiety Usebcjgfd78/25/2021epression Beljtyfka23/25/2021HIV Uxhjmnhcz73/25/2021Hepatitis C Uwoucjjgu23/25/2021ovid-19 Vaccine (3 - 2024- season)/07/2021, 04/01/2021Influenza Vaccine (#1)2025 3DTaP,Tdap,Td Vaccine (7 - Td or Tdap)607/, 06/24/2009, 11/12/2004, Additional history existsHepatitis B FjsubykOnehnfiuy26/05/2004, 2003, 2003 Insurance * Guarantor: Finesse Lewis LAccount TypeRelation to PatientDate of BirthPhone Billing AddressPersonal/AdqbihWnfb2003 [address] [facility] [place] [address] MemberSubscriberPlan / Payer (Effective 2019-Present)Name:FINESSE LEWIS Relation to Subscriber:ChildName:EBONY LEWIS Date of :1979 (Home) Address: [address] [place] [address] [place] [address] Payer ID:[id number] (NAIC) Type:O Address: [facility] [id number] [place] [phone] * Guarantor: EBONY LEWIS TypeRelation to PatientDate of BirthPhone Billing AddressPersonal/ToexatKwgqqk50/18/1979 [address] [facility] [place] [address] MemberSubscriberPlan / Payer (Effective 2019-Present)Name:FINESSE LEWIS Relation to Subscriber:ChildName:EBONY LEWIS Date of :1979 (Home) Address: [address] [place] [address] [place] [address] Payer ID:[id number] (NAIC) Type:O Address: [address] [place] [phone] Care Teams Team MemberRelationshipSpecialtyStart DateEnd Date Julian Carroll MD [address] [place] [address] PCP - Generalmily Medicine02/21/19
[2025-10-16 16:39] LABS: Hematocrit 46.8 % (42.0-54.0); Hemoglobin 16.3 g/dL (14.0-18.0); Immature Granulocytes Abs Auto 0.01 10^3/uL (0.00-0.03); Immature Granulocytes Pct Auto 0.1 % (0.0-0.5); Lymphocytes Absolute Auto 2.0 10^3/uL (1.2-3.8); Mean Corpuscular HGB Conc 34.8 g/dL (29.9-35.2); Mean Corpuscular Hemoglobin 30.5 pg (25.9-34.0); Mean Corpuscular Volume 87.5 fL (80.0-94.0); Platelet Count 252 10^3/uL (150-450); Red Blood Count 5.35 10^6/uL (4.70-6.10); White Blood Count 8.3 10^3/uL (4.0-11.0)
== END 2025-10-16 15:48 | disposition home or self-care (01) ==
PROVIDERS: PCP Family Medicine; Visit Provider Otolaryngology
DX: S02.2XXA Fracture of nasal bones, initial encounter for closed fracture (principal); I45.19 Other right bundle-branch block
CPT/HCPCS: 36415; 85025; 93005

== ENCOUNTER 2025-10-18 07:23 | Day surgery (SDC) | payer OTHER, SELFPAY ==
--- OUTSIDE RECORDS SUMMARY | 2025-10-09 17:17 | XMS_ITS | Encounter Summary ---
Author Organization [facility] tem Address [id number] [address] [place] [address] Care Team Providers Care Neighborhood Aide Name Role Phone Julian Carroll MD Primary Care Provider [phone] Reason for Visit * ReasonCommentsFall Encounter Details DateTypeDepartmentCare Team (Latest Contact Info)Jxfbjycctai45/25/2025 5:17 PM EST - 10/09/2025 6:41 PM [facility] - Emergency [address] [place] [phone] Closed fracture of nasal bone, initial encounter (Primary Dx); Effusion of right knee Discharge Disposition: Home Social History Tobacco UseTypesPacks/DayYears UsedDateSmoking Tobacco: NeverSmokeless Tobacco: NeverAlcohol UseStandard Drinks/WeekCommentsNever0 (1 standard drink = 0.6 oz pure alcohol)AUDIT-CAnswerDate RecordedFrequency of Alcohol ConsumptionNever 08/03/2019Average Number of DrinksNot on file08/03/2019Frequency of Binge DrinkingNot on file08/03/2019ChildcareAnswerDate RecordedChildcareUnknown 04/24/2019EmploymentAnswerDate SnbfqhruPvvxqgshwwJjbkvzz09/10/2019Hunger ScreeningAnswerDate RecordedWithin the past 12 months we worried whether our food would run out before we got money to buy more.Never True10/09/2025Within the past 12 months the food we bought just didn't last and we didn't have money to get more.Never True10/09/2025Purpose - LifeAnswerDate RecordedPurpose and direction in osihMhfgeyn63/10/2021ex and Gender InformationValueDate Recorded Sex Assigned at BirthNot on fileLegal PriRxzi6506/18/2015 2:22 PM EDTGender IdentityNot on fileSexual OrientationNot on filedocumented as of this encounter Last Filed Vital Signs Vital SignReadingTime TakenCommentsBlood Wodmktdi783/7610/09/2025 6:30 PM EST Mxrum093810/09/2025 6:30 PM USHBdnpneccxrl27.5 ??C (97.7 ??F)10/09/2025 5:22 PM ESTRespiratory Kapr420012/09/2024 6:30 PM ESTOxygen Sfrcjyzzyw49%10/09/2025 6:30 PM ESTInhaled Oxygen Concentration--Pekwha00.4 kg (214 lb 11.2 oz)10/09/2025 5:22 PM NTRUnarhb169.7 cm (6' 7 )10/09/2025 5:22 PM ESTBody [...] from the original note were not included. [facility] Pt Name: Lance [...] to go home. History provided by: Patient surgery specialist used: No Past Medical History: Past Medical [...] Procedures Procedure NamePriorityDate/TimeAssociated DiagnosisCommentsCT FACIAL BONES WO XLZNAIDJ68/25/2025 6:15 PM EST XR KNEE RT 3 PDTUSZI03/25/2025 6:12 PM EST documented in this encounter [...] 6:26 PM Authorizing ProviderResult TypeResult StatusAmber Kitchen DEVOPS DEVELOPER-CNPIMG CT ORDERABLESFinal Result * X-ray knee right [...] 6:15 PM Authorizing ProviderResult TypeResult StatusAmber Kitchen DEVOPS DEVELOPER-CNPIMG DIAGNOSTIC IMAGING ORDERABLESFinal Result documented in this encounter Visit Diagnoses Diagnosis Closed fracture of nasal bone, initial encounter- Primary Effusion of right knee documented in this encounter Care Teams Team MemberRelationshipSpecialtyStart DateEnd Date Julian Carroll MD [address] [place] [address] PCP - GeneralFamily Medicine07/21/19documented as of this encounter
--- OUTSIDE RECORDS SUMMARY | 2025-10-16 14:40 | XMS_ITS | Encounter Summary ---
Author Organization [facility] Address [address] [place] [address] Care Team Providers Care Electrical Instrument Technician Name Role Phone Julian Carroll MD Primary Care Provider [phone] Reason for Visit * ReasonCommentsNose ProblemNasal bone fracture ER/CT [facility] 10/09/25 * Consultation (Routine) - ClosedSpecialtyDiagnoses / ProceduresReferred By ContactReferred To ContactOtolaryngology Diagnoses Nasal bones, closed fracture Procedures [place] [facility] Julian Carroll MD [address] [place] [address] Phone: tel: fax: Carina Smith MD [address] [place] [address] Phone: tel: fax: Referral IDStatusReasonStart DateExpiration DateVisits RequestedVisits [id number]/26/20255/ Encounter Details DateTypeDepartmentCare Team (Latest Contact Info)Smpeozclckv54/02/2025 2:40 PM ESTOffice Visit [facility] [address] [facility] [address] [place] [address] Carina Smith MD 112 [facility] [address] [place] [address] Closed fracture of nasal bone, initial encounter (Primary Dx); Vasovagal syncope; Hypertension, unspecified type Social History Tobacco UseTypesPacks/DayYears UsedDateSmoking Tobacco: NeverSmokeless Tobacco: NeverSex and Gender InformationValueDate RecordedSex Assigned at BirthNot on fileLegal RvtEkth4701/27/2023 6:48 PM EDTGender IdentityNot on fileSexual OrientationNot on filedocumented as of this encounter Last Filed Vital Signs Vital SignReadingTime TakenCommentsBlood Ruxsfqfh897/0592910/16/2025 2:33 PM EST Qwfbk429710/16/2025 2:33 PM ESTTemperature--Respiratory Rate--Oxygen Saturation-- Inhaled Oxygen Concentration--Mibzej41.6 kg (213 lb)10/16/2025 2:33 PM ESTHeight 200.7 cm (6' 7 )10/16/2025 2:33 PM ESTBody Mass Haugi959810/16/2025 2:33 PM EST documented in this encounter Progress Notes * Carina Smith MD - 10/16/2025 2:40 PM EST Subjective Patient ID: Lance Marie is a 20 y.o. male who presents for Nose Problem (Nasal bone fracture ER/CT [facility] 10/09/25) Pt reports 10/08 pt was sitting at work in the [facility] ED and passed out striking [...] this encounter Plan of Treatment NameTypePriorityAssociated DiagnosesOrder ScheduleECG 12 leadECGRoutine Closed fracture of nasal bone, initial encounter Expected: 10/16/2025 (Approximate), Expires: 10/16/2026documented as of this encounter Visit Diagnoses Diagnosis Closed fracture of nasal bone, initial encounter- Primary Vasovagal syncope Syncope and collapse Hypertension, unspecified type documented in this encounter Care Teams Team MemberRelationshipSpecialtyStart DateEnd Date Julian Carroll MD [address] [place] [address] PCP - GeneralFamily Xmrpyria30/1/25documented as of this encounter
--- OUTSIDE RECORDS SUMMARY | 2025-10-17 03:21 | XMS_ITS | Continuity of Care Document ---
Author Organization [facility] Address [address] [place] [address] Phone Care Team Providers Care Sheet Metal Duct Installer Apprentice Name Role Phone Julian Carroll MD Primary Care Provider Julian Carroll MD Attending Provider Danial Lpoez Attending Provider Unavailable Carina Smith Jr, MD Attending Provider Tiffanievai sneha Care Teams Patient Care Team Team Status: [...] 2025 Danial LopezAttemely ProviderActiveStart: October 10, 2025 Visit Care Team Team Status: Active Member Role/Relationship Status Dates Julian Carroll MD Primary Care Provider Active S tart: October 16, 2025 Tammi Robison Jr ProviderActiveStart: October 16, 2025 Visit Care Team Team Status: Inactive Member Role/Relationship Status Dates Julian Carroll MD Primary Care Provider Active S tart: October 17, 2025 End: October 17, 2025Marc Tammi Carroll ProviderActiveStart: October 17, 2025 End: October 17, 2025 Chief Complaint and Reason for Visit Chief Complaint Admit Date est patient August 16, 2025 3: 08pm Referral Order October 10, 2025 1:54pm Amb Documentation October 10, 2025 1:58pm lightheaded from broken nose over a week ago October 17, 2025 7:52am Reason for Visit Admit Date Annual physical exam August 16, 2025 3 :08pm Reason for Referral Type Reason(s) Provider Provider Contact Information Melchor tavares Address Start Date Closed fracture of nasal bone S02.2XXA - Fracture of nasal bones, initial encounter for closed fracture S02.2XXA - Fracture of nasal bones, initial encounter for closed fractureHANNARY ZACHARY GONZALEZ ORDER- [facility]LE [facility] Allergies, Adverse Reactions, Alerts Allergen Type Severity Reaction Last Updated Verified Status No Known Allergies Allergy Unknown October 17, 2025 7:59amYesActive Social History Smoking Status Status Start Date End Date Date of Observa tion Never smoked tobacco (finding) August 16, 2025 3:14pm Observation Status Observation Response Date of Response Legal Sex Male (finding) Sex Assigned At [facility] 2002 Problems Active Problems Problem Diagnosis/Recorded Date [...] Brace With Thumb Spica unit Active 0 .Izcix42Ygiydirz 2023 12:00amAs directedNaproxen 500 mg tabletDiscontinued 500MGPOTwice daily as needed for ibrh25470Lxkrtutk 2023 12:00amOctober 2024 1:22pm Relevant Diagnostic Tests and/or Laboratory Data Laboratory Results Test Collection Date/Time Result Date/Time Result Interpretation Reference Range Result Comment Performing Site Basophils # (Auto) October 16, 2025 4:15pm October 16, 2025 4:15pm 0.1 10 3/uL 0.0-0.1Basophils (%) (Auto)October 16, 2025 4:15pmDecember 2024 4:15pm0.8 %0.2-2.0Eosinophils # (Auto)October 16, 2025 4:15pmDecember 2024 4:15pm 0.3 10 3/uL0.0-0.7Eosinophils (%) (Auto)October 16, 2025 4:15pmDecember 2024 4:15pm4.0 %0.9-7.0HematocritDece2024 4:15pmDecember 2024 4:15pm46.8 %42.0-54.0HemoglobinDece2024 4:15pmDecember 2024 4:15pm16.3 g/dL14.0-18.0Immature Granulocyte # (Auto)October 16, 2025 4:15pm October 16, 2025 4:15pm0.01 10 3/uL0.00-0.03Immature Granulocyte % (Auto) October 16, 2025 4:15pmDecember 2024 4:15pm0.1 %0.0-0.5Lymphocytes # (Auto)October 16, 2025 4:15pmDecember 2024 4:15pm2.0 10 3/uL1.2-3.8 Lymphocytes (%) (Auto)October 16, 2025 4:15pmDecember 2024 4:15pm23.5 % 20.5-60.0Mean Corpuscular HemoglobinDe2024 4:15pmDecemb2024 4:15pm30.5 pg25.9-34.0Mean Corpuscular Hemoglobin ConcentOctober 16, 2025 4:15pmDecemb2024 4:15pm34.8 g/dL29.9-35.2Mean Corpuscular VolumeOctober 16, 2025 4:15pmDecember 2024 4:15pm87.5 fL80.0-94.0Monocytes # (Auto) October 16, 2025 4:15pmDecemb2024 4:15pm0.6 10 3/uL0.3-0.8Monocytes (%) (Auto)October 16, 2025 4:15pmDecember 2024 4:15pm6.7 %1.7-12.0Mean Platelet VolumeOctober 16, 2025 4:15pmDecemb2024 4:15pm10.1 fL9.5-13.5 Neutrophils # (Auto)October 16, 2025 4:15pmDecemb2024 4:15pm5.4 10 3/uL1.4-6.5Neutrophils (%) (Auto)October 16, 2025 4:15pmDecemb2024 4:15pm64.9 %43.0-75.0Platelet CountOctober 16, 2025 4:15pmDecemb2024 4:54tz085 10 3/kY516-973Ber Blood CountOctober 16, 2025 4:15pmDecemb2024 4:15pm5.35 10 6/uL4.70-6.10Red Cell Distribution WidthOctober 16, 2025 4:15pmDecemb2024 4:15pm11.8 %11.0-15.0Corrected White Blood Count October 16, 2025 4:15pmDecemb2024 4:15pm8.3 10 3/uL4.0-11.0 Vital Signs Vital Reading Result Reference Range Collection Date/Time Height 79 [in_i] August 16, 2025 2:01ynWqbdjh89.67 kgOctober 2024 2:11pmBody Temperature 98.6 [degF]97.6-99.0October 2024 2:11pmHeart Rate62 /wcg91-159Uzadmzg 2024 2:11pmRespiratory rate18 /fax67-24Avfiwjh 2024 2:11pmOxygen saturation by Pulse iqpylxav37 %95-100Octjames [facility]. [facility] 2024 2:11pmBP Akqjkipx346 mm[Hg]100-140 August 16, 2025 2:11pmBP Tnldzwszf97 mm[Hg]60-100October 2024 2:11pmBMI (Body Mass Index)24.0 kg/p7Tfhdmib 2024 2:79llOfryny48 [in_i]October 17, 2025 7:41lsRdgkin49.25 kgDeceabrazo west campus 2024 7:58amBody Wdaukweymvv29.6 [degF] 97.6-99.0Dehonorhealth sc[facility] 2024 7:58amHeart Rate37 /mmc05-444Dwwseftq 3rd, 2025 7:58amRespiratory rate18 /tot61-37Lblgaiba 2024 7:58amOxygen saturation by Pulse rwenerav99 %95-100[facility] 2024 7:58amBP Uzlwisyh837 mm[Hg]100-140 October 17, 2025 7:58amBP Khkrrcbvi60 mm[Hg]60-100Dece2024 7:58amBMI (Body Mass Index)24.3 kg/r0Fidunuzf 2024 7:58am Advance Directives Advance Directive Response Recorded Date/ Time Advance Directives No October 11:47am Insurance Providers Guarantor Lance Tejada Mcmaster Address [address] [place] [place] [address]Qbshddp Info.Home Phone: Coverage Status Update:2024 Payer Group Member ID Coverage Type Subscriber Relationship to Subscriber Effective Date Expiration Date [facility] Id: [id number] Mallory LlamasNorberto Id: [id number] [address] [place] [address] Home Phone: Email: [email or web address] Encounters Encounter Location(s) Arrival/Admit Date Discharge/Departure Date Discharge/Departure Disposition Provider(s) Departed Physician/ Provider Office Visit -[facility] Family Medicine Vitor August 16, 2025 3:08pm August 16, 2025 3:42pm Discharged to home care or self care (routine discharge) Julian Carroll MD Non-patient / Non-visit -[facility] N ovember 2024 1:54pm Julian Carroll MDNon-patient / Orb-eqehr-[facility] HéctoreNovember 2024 1:58pmSaisaac LopezNon-patient / Gru-nsjpg-[facility] October 16, 2025 4:15pmHIMALINI JASSOeparted Physician/Provider Office Visit-[facility] 7:52amDeceer 2024 8:20amDischarged to home care or self care (routine discharge)Julian Carroll MD Recent Diagnosis Onset Date Admit Date Annual physical exam Unknown August 3:08pm Assessments Diagnosis Onset Date Resolution Status Admit Date Annual physical exam acuteOctober 2024 3:08pm Plan of Treatment Author Julian Carroll [facility] HospitalAuthoredOctjames b. [facility] 2024 2:46pmForm completed for school. Titers for [...]
[2025-10-18] VITALS (9 sets, daily range): BP systolic 120–136; BP diastolic 72–83; PULSE 60–66; TEMP 36.1–36.3; O2SAT 94–99; BMI 23.9
--- NOTE | 2025-10-18 | OP_ITS ---
OPERATION DATE: 10/18/2025 PRIMARY CARE PHYSICIAN: Julian Carroll M.D. SURGEON: Carina Smith M.D. PREOPERATIVE DIAGNOSIS: Displaced closed nasal fracture. POSTOPERATIVE DIAGNOSIS: Displaced closed nasal fracture. PROCEDURE: Closed reduction nasal fracture with stabilization. ANESTHESIA: General endotracheal. COMPLICATIONS: None. FINDINGS: Bilateral displaced nasal bones to the left. INDICATIONS: This 20-year-old man suffered a displaced nasal fracture after falling during a syncopal episode. The patient had undergone an extensive workup for recurrent syncope two years ago, with no significant findings and re- evaluation is being initiated with placement of a Holter monitor this week. PROCEDURE: Patient identified in the holding area and taken back to the OR where he was placed in the supine position. After induction of general endotracheal anesthesia, Afrin soaked pledgets were placed in each side of the nose. After waiting adequate time for decongestion, a Ford elevator was placed in the right side of the nose. The dorsum was elevated and, using pressure from the elevator to the right and thumb pressure on the left, the fracture was reduced. There was both a palpable and audible reduction of the patient?s fracture. Examination of the nose after this maneuver showed that the nasal dorsum was straight. The skin was then prepped with Mastisol. Steri- Strips placed over the nose, and a malleable splint placed over the Steri- Strips. Patient was then awakened and taken to the recovery room in good condition. [facility] STATE HOSPITALYadira
--- OUTSIDE RECORDS SUMMARY | 2025-10-18 07:26 | XMS_ITS | Encounter Summary ---
Author Organization [facility] Address [address] [place] [address] Care Team Providers Care Clerical Manager Name Role Phone Julian Carroll MD Primary Care Provider [phone] Encounter Details DateTypeDepartmentCare Team (Latest Contact Info)Thrxnipsrfm00/02/2025linisync Result Encounter [facility] Unsolicited Carina Smith MD [address] [place] [address] Social History Tobacco UseTypesPacks/DayYears UsedDateSmoking Tobacco: NeverSmokeless Tobacco: NeverSex and Gender InformationValueDate RecordedSex Assigned at BirthNot on fileLegal ThcTxdx6401/27/2023 6:48 PM EDTGender IdentityNot on fileSexual OrientationNot on filedocumented as of this encounter Plan of Treatment Not on file documented as of this encounter Procedures Procedure NamePriorityDate/TimeAssociated DiagnosisCommentsECG 12-LEAD10/16/2025 4:05 PM EST documented in this encounter Results * ECG 12-LEAD (10/16/2025 4:05 PM EST)Anatomical RegionLateralityModalityOther Specimen (Source)Anatomical Location / LateralityCollection Method / Volume Collection TimeReceived Time10/16/2025 4:05 PM EST Narrative 10/17/2025 7:48 PM EST [facility] ?[address] ? [place] [address] ? Electrocardiograph Report ? Signed ? Patient: DEBBIE,FINESSE L ?MR#: [id number] ?? : 2005 ?Acct:[id number] ?? Age/Sex: 20 / M ?ADM Date: 10/16/ ?? Loc: LAB ? Attending Dr: Carina Smith M.D. ? Ordering Physician: Carina Smith M.D. ?? Date of Service: 10/16/25 ?? Procedure(s): ECG 12 lead ?? Accession Number(s): [id number] ? cc: ?[facility] ? Test Date: ?2025-10-16 ?? Pat Name: ? FINESSE DEBBIE ? Department: ? Room: ? - ?? Gender: ? Male ? Transport Rn: ? : ?2005 ? Requested By: CARINA SMITH ?? Order Number: [id number] ?Reading MD: ?? AL ??Pushpa GARCIA ? Measurements ?? Intervals ?[place] ? Rate: ? 50 ? P: ?0 ?? [place]: ? 149 ?QRS: ?87 ?? QRSD: ? 109 ?T: ?66 ?? QT: ? 409 ? QTc: ?376 ? Interpretive Statements ?? SINUS BRADYCARDIA ?? INCOMPLETE RIGHT BUNDLE BRANCH BLOCK [90+ ms QRS DURATION, TERMINAL R IN ?? V1/V2, ?? 40+ ms S IN I/aVL/V4/V5/V6] ?? Compared to ECG 10/11/2022 03:55:33 ?? Incomplete right bundle-branch block now present ?? Q waves no longer present ?? Electronically Signed On 10-17-2025 19:47:38 EST by AL ??Pushpa GARCIA ? Dictated By: ?AL GARCIA ? Signed By: ?10/17/ 1950 ?10/17/25 1950 ? DD/ 1605 ? TD/TT: ? Metrologist: Procedure Note Radiology, Radiologist, MD - 10/17/2025 [place] [address] Electrocardiograph Report Signed Patient: FINESSE LEWIS LMR#: [id number] : 2005Acct:[id number] Age/Sex: 20 / MADM Date: 10/16/25 Loc: LAB Attending Dr: Carina Smith M.D. Ordering Physician: Carina Smith M.D. Date of Service: 10/16/25 Procedure(s): ECG 12 lead Accession Number(s): [id number] cc: [facility] Test Date: 2025-10-16 Pat Name: FINESSE LEWIS Department: Room: - Gender: Male Transport Rn: : 2005 Requested By: CARINA SMITH Order Number: [id number] Reading MD: AL GARCIA M.D. Measurements Intervals [place] Rate: 50 P: 0 [place]: 149 QRS: 87 QRSD: 109 T: 66 QT: 409 QTc: 376 Interpretive Statements SINUS BRADYCARDIA INCOMPLETE RIGHT BUNDLE BRANCH BLOCK [90+ ms QRS DURATION, TERMINAL R IN V1/V2, 40+ ms S IN I/aVL/V4/V5/V6] Compared to ECG 10/11/2022 03:55:33 Incomplete right bundle-branch block now present Q waves no longer present Electronically Signed On 10-17-2025 19:47:38 EST by AL GARCIA M.D. Dictated By: AL GARCIA Signed By:10/17/25194710/17/251947 DD/ 04 TD/TT: Metrologist: Authorizing ProviderResult TypeResult StatusHilary H Timmis MDCLINISYNC IMAGING Final Result documented in this encounter Visit Diagnoses Not on filedocumented in this encounter Care Teams Team MemberRelationshipSpecialtyStart DateEnd Date Julian Carroll MD [address] [place] [address] PCP - GeneralFamily Ciasuvzk13/1/25documented as of this encounter
--- OUTSIDE RECORDS SUMMARY | 2025-10-18 07:26 | XMS_ITS | Clinical Summary ---
Author Organization [facility] Address [address] [place], [place] [address] Care Team Providers Care Processing Assistant Name Role Phone Julian Carroll MD Primary Care Provider [phone] Allergies No known active allergies Medications MedicationSigDispense [...] RecordedNational Score (1-100), lower number is lower yuih317507/05/2023State Score (1-10), lower number is lower ptyd49407/05/2023ata from: https://www.neighborhoodatlas.medicine.[facility].edu/. Last address used for [address]Sex and Gender InformationValueDate RecordedSex Assigned at BirthNot on fileLegal SexMale 02/20/2019 12:12 PM EDTGender IdentityNot on fileSexual OrientationNot on file Last Filed Vital Signs Vital SignReadingTime TakenCommentsBlood Wnoscomg170/6109 3:08 PM EDT Gffkd8251/07/2023 3:08 PM EDTpost scan jogrnnJyujeqjpkzw08.4 ??C (97.5 ??F) 08/06/2020 9:59 AM EDTRespiratory Snck831603/30/2019 2:00 PM EDTOxygen Saturation 100%03/30/2019 2:00 PM EDTInhaled Oxygen Concentration--Xqleup59.7 kg (200 lb) 07/22/2023 2:45 PM CSYObnarn774.7 cm (6' 7 )07/22/2023 2:45 PM EDTBody Mass Index22.5309 2:45 PM EDT Plan of Treatment Health MaintenanceDue DateLast DoneCommentsPeds To Adult Transition Initial Zekhxtbsjw34/25/2015Peds To Adult Transition Annual Ehklzdjges86/25/2017HPV Vaccine (1 - Male 3-dose series)2018Meningococcal B Vaccine (1 of 2 - Standard)2019Anxiety Thwsnrenb58/25/2021epression Tbrszdvax64/25/2021HIV Ecwonufne04/25/2021Hepatitis C Zwfjnsbqd28/25/2021ovid-19 Vaccine (3 - 2024- season)/07/2021, 04/01/2021Influenza Vaccine (#1)2025 3DTaP,Tdap,Td Vaccine (7 - Td or Tdap)607/, 06/24/2009, 11/12/2004, Additional history existsHepatitis B WdmlqleUyuudypxg39/05/2004, 2003, 2003 Insurance * Guarantor: Finesse Lewis LAccount TypeRelation to PatientDate of BirthPhone Billing AddressPersonal/AhgffeTuhp2003 [address] [place] [address] MemberSubscriberPlan / Payer (Effective 2019-Present)Name:FINESSE LEWIS Relation to Subscriber:ChildName:EBONY LEWIS Date of :1979 (Home) Address: [address] [place] [address] [place] [address] Payer ID:[id number] (NAIC) Type:O Address: [facility] [address] [place] [phone] * Guarantor: EBONY LEWIS TypeRelation to PatientDate of BirthPhone Billing AddressPersonal/HcepoeFgzmqs58/18/1979 [address] [place] [address] MemberSubscriberPlan / Payer (Effective 2019-Present)Name:FINESSE LEWIS Relation to Subscriber:ChildName:EBONY LEWIS Date of :1979 (Home) Address: [address] [place] [address] [place] [address] Payer ID:[id number] (NAIC) Type:O Address: [address] [place] [phone] Care Teams Team MemberRelationshipSpecialtyStart DateEnd Date Julian Carroll MD [address] [place] [address] PCP - Generalmily Medicine02/21/19
--- OUTSIDE RECORDS SUMMARY | 2025-10-18 07:26 | XMS_ITS | Patient Health Record ---
Author Organization [facility] [place] Address [address] [place] [address] Support Name Relationship Address Phone Mustapha Thornton Emergency Contact Unknown [phone] Lance Thornton Guarantor Unknown [phone] Reason For Referral No Information Plan Of Treatment No Information Insurance Providers Payer Name Payer Address Payer Phone Subscriber Number Group Number Insured Name Patient Relationship to Insured Coverage Start Date Coverage End Date SELF PAY ON PATIENT DEMOGRAPHICS Rosi Thorntonelf - patient is the kafufiw2804/14/2011
--- OUTSIDE RECORDS SUMMARY | 2025-10-18 07:26 | XMS_ITS | Clinical Summary ---
Author Organization [facility] iyzico [facility] tem Address [facility] [place] [address] Care Team Providers Care Recovery Advocate Name Role Phone Julian Carroll MD Primary Care Provider [phone] Allergies No known active allergies Medications No known medications Active Problems ProblemNoted DateDiagnosed DateGeneralized abdominal pain12/22/2022Syncopal cifxauij17/27/2022yncope, unspecified syncope type10/11/2022eizure-like elgoizwn86/11/2019Migraine with aura, not oazumlepevo41/11/2019Dizziness 08/25/2019 Encounters DateTypeDepartmentCare RcsdBisbnpuvyco09/25/2025 5:17 PM EST - 10/09/2025 6:41 PM ESTEmergency [facility] [address] [place] [phone] Closed fracture of nasal bone, initial encounter [...] of Binge DrinkingNot on file08/03/2019ChildcareAnswerDate RecordedChildcareUnknown 04/24/2019EmploymentAnswerDate YktwfpfrCbzzpyblhuToqtlsf95/10/2019Hunger ScreeningAnswerDate RecordedWithin the past 12 months we worried whether our food would run out before we got money to buy more.Never True10/09/2025Within the past 12 months the food we bought just didn't last and we didn't have money to get more.Never True10/09/2025Purpose - LifeAnswerDate RecordedPurpose and direction in bzbjBxdllku20/10/2021ex and Gender InformationValueDate Recorded Sex Assigned at BirthNot on fileLegal KncVqnh7306/18/2015 2:22 PM EDTGender IdentityNot on fileSexual OrientationNot on file Last Filed Vital Signs Vital SignReadingTime TakenCommentsBlood Yiabcpxl635/7611 6:30 PM EST Lpsgw392310/09/2025 6:30 PM IFEIoytvyotgwp28.5 ??C (97.7 ??F)10/09/2025 5:22 PM ESTRespiratory Cpmx088012/09/2024 6:30 PM ESTOxygen Pmoebraehn23%10/09/2025 6:30 PM ESTInhaled Oxygen Concentration--Tazxxi48.4 kg (214 lb 11.2 oz)10/09/2025 5:22 PM CFVQmelxt797.7 cm (6' 7 )10/09/2025 5:22 PM ESTBody Mass Index24.19 10/09/2025 5:22 PM EST Plan of Treatment Health MaintenanceDue DateLast DoneCommentsDepression Qcghmqziy58/25/2015COVID- 19 Vaccine (3 - season)506/07/2021, 04/01/2021Influenza Vaccine 501/3DTaP,Tdap and Td Vaccines (7 - Td or Tdap)06/05/2026 06/05/2016, 06/24/2009, 11/12/2004, Additional history existsAdult BMI Screening Tobacco Hlazzkrda27 Medical Devices Not on file Procedures Procedure NamePriorityDate/TimeAssociated DiagnosisCommentsCT FACIAL BONES WO LRBUNHCQ09/25/2025 6:15 PM EST XR KNEE RT 3 UTKWVER10/25/2025 6:12 PM EST from Last 3 Months [...] 10/09/2025 6:26 PM Authorizing ProviderResult TypeResult StatusAmber [place] WORM PICKER-CNPIMG CT ORDERABLESFinal Result * X-ray knee right [...] 6:15 PM Authorizing ProviderResult TypeResult StatusAmber Imtiaz WORM PICKER-CNPIMG DIAGNOSTIC IMAGING ORDERABLESFinal Result from Last 3 Months Insurance [facility] [id number] * Guarantor: Lance MarieAccojagruti TypeRelation to PatientDate of PhoneBilling AddressWorkers LdctPohq[address] [place] [address] * Guarantor: Juliana Marie TypeRelation to PatientDate of BirthPhoneBilling AddressPersonal/TkxgktOadoqo86/12/1979 [address] [place] [address] Advance Directives * Full Code (Latest Code Status on File) Date ActivatedDate DjiksascbfvHckkwjiq13/27/2022 2:12 PM10/11/2022 7:09 PM Care Teams Team MemberRelationshipSpecialtyStart DateEnd Date Julian Carroll MD [address] [place] [address] PCP - GeneralFamily Medicine07/21/19
--- OUTSIDE RECORDS SUMMARY | 2025-10-18 07:26 | XMS_ITS | Clinical Summary ---
Author Organization [facility] Address [address] [place] [place] [address] Care Team Providers Care Technical Expert Name Role Phone Julian Carroll MD Primary Care Provider [phone] Allergies No known active allergies Medications MedicationSigDispense QuantityRefillsLast FilledStart DateEnd DateStatus ondansetron (Zofran) 4 MG tablet Take by mouthActive Active Problems ProblemNoted DateDiagnosed DateLeft thumb ioyken2610/15/2025Nasal bones, closed glvgixrf10/01/2025Pain in thumb joint with movement of left hand10/15/2025nnual physical exam2025dolescent idiopathic scoliosis of thoracic region 4Chronic migraine without aura without status migrainosus, not skegvtdyujy28/07/2024Allergic rhinitis due to xhayfb1103/21/2024Sialadenitis 03/21/2024 Assessment & Plan (03/21/2024 9:55 AM EDT): Appears to be swollen salivary gland and treat with antibiotics. Use sour candy. If no improvement after treatment will check US and labs. Encounters DateTypeDepartmentCare RfmoTrokrqbvuxb79/02/2025 2:40 PM ESTOffice Visit [facility] [address] [place] [address] Carina Smith MD Closed fracture of nasal bone, initial encounter (Primary Dx); Vasovagal syncope; Hypertension, unspecified type10/16/2025linisync Result Encounter [facility] External Department Unsolicited Carina Smith MD 10/16/2025linisync Result Encounter [facility] External Department Unsolicited Carina Smith MD 10/16/2025amboo flowsheet [facility] [address] [facility] [address] [place] [address] Carina Smith MD 10/16/20254139Ubzjbv54/01/2025Orders Only [facility] [address] [place] [address] Unallocated, Nomnithya Holloway MD from Last 3 Months Immunizations ImmunizationAdministration DatesNext HsaNAqX49/29/2004,2003DTaP / Hep B / IPV03/19/2004,2003DTaP, Izdzqumxcwi50/10/2009Hep B, Adolescent or Xjzkfbjrd2003Hep B, adult09/24/2025,08/23/2025Hib (PRP-T)11/12/2004, 03/19/2004,2003,2003IPV06/24/2009,2003Influenza, injectable, quadrivalent, preservative free11/19/2022MMR10Meningococcal MCV4O 06/05/2016Meningococcal YKS5P671PPD Test07/17/2025,2025Pneumococcal Conjugate PCV ,2003,2003Tdap112/10/2024,06/05/2016 Family History RelationNameStatusCommentsFatherAliveMotherAlive Social History Tobacco UseTypesPacks/DayYears UsedDateSmoking Tobacco: NeverSmokeless Tobacco: Never Tobacco Cessation:Counseling Given: Not Answered Sex and Gender InformationValueDate RecordedSex Assigned at BirthNot on file Legal IhyYnxf3401/27/2023 6:48 PM EDTGender IdentityNot on fileSexual Orientation Not on file Last Filed Vital Signs Vital SignReadingTime TakenCommentsBlood Axuohiot820/10692 2:33 PM EST Metxv101610/16/2025 2:33 PM VNIOeeqiiliiei60.6 ??C (97.8 ??F)03/21/2024 9:29 AM EDTRespiratory Otfu722803/21/2024 9:29 AM EDTOxygen Bcllcnuywl27%03/21/2024 9:29 AM EDTInhaled Oxygen Concentration--Jzswje73.6 kg (213 lb)10/16/2025 2:33 PM EST Qygbyi264.7 cm (6' 7 )10/16/2025 2:33 PM ESTBody Mass Eauro692410/16/2025 2:33 PM EST Plan of Treatment Health MaintenanceDue DateLast DoneCommentsCOVID-19 Vaccine ( season) /07/2021, 04/01/2021Influenza Vaccine (#1)/03/2023 Pneumococcal Vaccine: Pediatrics (0 to 5 Years) and At-Risk Patients (6 to 64 Years)Aged Out08/26/2004, 2003, 2003No longer eligible based on patient's age to complete this topic Procedures Procedure NamePriorityDate/TimeAssociated DiagnosisCommentsALL CBC WITH AUTO TBTNRjfcjov31/02/2025 4:15 PM EST ECG 12-LEAD10/16/2025 4:05 PM EST from Last 3 Months Results * ALL CBC WITH AUTO DIFF (10/16/2025 4:15 PM EST)ComponentValueRef RangeTest MethodAnalysis TimePerformed AtPathologist SignatureTBH WBC8.34.0 - 11.0 10 3/uLTBHTBH RBC5.354.70 - 6.10 10 6/uLTBHTBH HGB16.314.0 - 18.0 g/dLTBHTBH HCT 46.842.0 - 54.0 %TBHTBH MCV87.580.0 - 94.0 fLTBHTBH MCH30.525.9 - 34.0 pgTBH TBH MCHC34.829.9 - 35.2 g/dLTBHTBH RDW11.811.0 - 15.0 %TBHTBH NVW428954 - 450 10 3/uLTBHTBH MPV10.19.5 - 13.5 fLTBHNEUTROPHILS PERCENT AUTO64.943.0 - 75.0 % TBHLYMPHOCYTES PERCENT AUTO23.520.5 - 60.0 %TBHMONOCYTES PERCENT AUTO6.71.7 - 12.0 %TBHTBH EO %4.00.9 - 7.0 %TBHBASOPHILS PERCENT AUTO0.80.2 - 2.0 %TBH IMMATURE GRANULOCYTES PCT AUTO0.10.0 - 0.5 %TBHNEUTROPHILS ABSOLUTE AUTO5.41.4 - 6.5 10 3/uLTBHLYMPHOCYTES ABSOLUTE AUTO2.01.2 - 3.8 10 3/uLTBHMONOCYTES ABSOLUTE AUTO0.60.3 - 0.8 10 3/uLTBHTBH EO #0.30.0 - 0.7 10 3/uLTBHBASOPHILS ABSOLUTE AUTO0.10.0 - 0.1 10 3/uLTBHIMMATURE GRANULOCYTES ABS AUTO0.010.00 - 0.03 10 3/uLTBHSpecimen (Source)Anatomical Location / LateralityCollection Method / VolumeCollection TimeReceived Time10/16/2025 4:15 PM EST10/16/2025 4:16 PM EST Narrative [facility] - 10/16/2025 4:49 PM EST Authorizing ProviderResult TypeResult StatusHilary H Timmis MDCLINISYNCFinal ResultPerforming OrganizationAddressCity/State/[facility] CodePhone Number [facility] * ECG 12-LEAD (10/16/2025 4:05 PM EST)Anatomical RegionLateralityModalityOther Specimen (Source)Anatomical Location / LateralityCollection Method / Volume Collection TimeReceived Time10/16/2025 4:05 PM EST Narrative 10/17/2025 7:48 PM EST [facility] ?[address] ? [place] [address] ? Electrocardiograph Report ? Signed ? Patient: FRANK,FINESSE L ?MR#: [id number] ?? : 2005 ?Acct:[id number] ?? Age/Sex: 20 / M ?ADM Date: 10/16/25 ?? Loc: LAB ? Attending Dr: Carina Smith M.D. ? Ordering Physician: Carina Smith M.D. ?? Date of Service: 10/16/25 ?? Procedure(s): ECG 12 lead ?? Accession Number(s): [id number] ? cc: ?[facility] ? Test Date: ?2025-10-16 ?? Pat Name: ? FINESSE FRANK ? Department: ? Room: ? - ?? Gender: ? Male ? 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 Requested By: CARINA TIMMIS ?? Order Number: [id number] ?Reading MD: ?? AL ??RADHA MAbelD. ? Measurements ?? Intervals ?[place] ? Rate: ? 50 ? P: ?0 ?? DE: ? 149 ?QRS: ?87 ?? QRSD: ? [...] Dictated By: ?AL GARCIA ? Signed By: ?12/03/25 1948 ?10/17/25 1950 ? DD/ 1605 ? TD/TT: ? Wood Tank Erector: Procedure Note Radiology, Radiologist, MD - 10/17/2025 [place] [address] Electrocardiograph Report Signed Patient: FINESSE LEWIS R#: [id number] : 2005Acct:[id number] Age/Sex: Date: 10/16/25 Loc: LAB Attending Dr: Carina Smith M.D. Ordering Physician: Carina Smith M.D. Date of Service: 10/16/25 Procedure(s): ECG 12 lead Accession Number(s): [id number] cc: [facility] Test Date: 2025-10-16 Pat Name: FINESSE LEWIS Department: Room: - Gender: Male Tool And Die Maker/Designer: : 2005 Requested By: CARINA SMITH Order Number: [id number] María MD: AL GARCIA M.D. Measurements Intervals [place] Rate: 50 P: 0 DE: 149 QRS: 87 QRSD: 109 T: 66 [...] Dictated By: AL GARCIA Signed By:10/17/25194710/17/251947 DD/ 1605 TD/TT: Wood Tank Erector: Authorizing ProviderResult TypeResult StatusHilary H Timminithya MDCLINISYNC IMAGING Final Result from Last 3 Months Insurance Care Teams Team MemberRelationshipSpecialtyStart DateEnd Date Julian Carroll MD [address] [place] [address] PCP - GeneralFamily Sgzckeds13/1/25
--- OUTSIDE RECORDS SUMMARY | 2025-10-18 07:26 | XMS_ITS | Encounter Summary ---
Author Organization [facility] Address [address] [facility] [place] [address] Care Team Providers Care Cook Relief Name Role Phone Julian Carroll MD Primary Care Provider [phone] Encounter Details DateTypeDepartmentCare Team (Latest Contact Info)Sucimkhhekb76/02/2025Travel Social History Tobacco UseTypesPacks/DayYears UsedDateSmoking Tobacco: NeverSmokeless Tobacco: NeverSex and Gender InformationValueDate RecordedSex Assigned at BirthNot on fileLegal ItjQxkf9601/27/2023 6:48 PM EDTGender IdentityNot on fileSexual OrientationNot on filedocumented as of this encounter Plan of Treatment Not on file documented as of this encounter Visit Diagnoses Not on filedocumented in this encounter Care Teams Team MemberRelationshipSpecialtyStart DateEnd Date Julian Carroll MD [address] [place] [address] PCP - GeneralFamily Kwfzlcbr26/1/25documented as of this encounter
--- OUTSIDE RECORDS SUMMARY | 2025-10-18 07:26 | XMS_ITS | Clinical Summary ---
Author Organization [facility] Address [address], [address] [place] [address] Care Team Providers Care Speech Therapist Name Role Phone Julian Carroll MD Primary [...] InformationValueDate RecordedSex Assigned at BirthNot on fileLegal HhjJpzq2508/12/2018 12:58 AM EDTGender IdentityNot on fileSexual OrientationNot on file Last Filed Vital Signs Vital SignReadingTime TakenCommentsBlood Ivbwdmwl828/6911 5:16 PM EDT Qmgcl1818 5:15 PM CQGEdwivcujlek75 ??C (98.6 ??F)01/30/2019 8:10 AM EDT Respiratory Qoxp4259 5:14 PM EDTOxygen Lllfwxmeqa649%09/16/2018 5:15 PM EDTInhaled Oxygen Concentration--Ytzaes59.4 kg (175 lb)01/30/2019 8:10 AM EDT Ihruoy231.9 cm (6' 5.5 )01/30/2019 8:10 AM EDTBody Mass Index20.4903 8:10 AM EDT Plan of Treatment Not on file Insurance Care Teams Team MemberRelationshipSpecialtyStart DateEnd Date Julian Carroll MD [address] [place] [address] PCP - GeneralFamily Medicine08/12/18
--- OUTSIDE RECORDS SUMMARY | 2025-10-18 07:26 | XMS_ITS | Encounter Summary ---
Author Organization [facility] Address [address] [place] [address] Care Team Providers Care Transit Vehicle Inspector Name Role Phone Julian Carroll MD Primary Care Provider [phone] Encounter Details DateTypeDepartmentCare Team (Latest Contact Info)Kbgbtmdcatk31/02/2025linisync Result Encounter [facility] External Department Unsolicited Carina Smith MD [address] [place] [address] Social History Tobacco UseTypesPacks/DayYears UsedDateSmoking Tobacco: NeverSmokeless Tobacco: NeverSex and Gender InformationValueDate RecordedSex Assigned at BirthNot on fileLegal LobNsey9501/27/2023 6:48 PM EDTGender IdentityNot on fileSexual OrientationNot on filedocumented as of this encounter Plan of Treatment Not on file documented as of this encounter Procedures Procedure NamePriorityDate/TimeAssociated DiagnosisCommentsALL CBC WITH AUTO NNMLKugwsph96/02/2025 4:15 PM EST documented in this encounter Results * ALL CBC WITH AUTO DIFF (10/16/2025 4:15 PM EST)ComponentValueRef RangeTest MethodAnalysis TimePerformed AtPathologist SignatureTBH WBC8.34.0 - 11.0 10 3/uLTBHTBH RBC5.354.70 - 6.10 10 6/uLTBHTBH HGB16.314.0 - 18.0 g/dLTBHTBH HCT 46.842.0 - 54.0 %TBHTBH MCV87.580.0 - 94.0 fLTBHTBH MCH30.525.9 - 34.0 pgTBH TBH MCHC34.829.9 - 35.2 g/dLTBHTBH RDW11.811.0 - 15.0 %TBHTBH VQS739699 - 450 10 3/uLTBHTBH MPV10.19.5 - 13.5 [...] ProviderResult TypeResult StatusHilary H Timmis MDCLINISYNCFinal ResultPerforming OrganizationAddressCity/State/ZIP CodePhone Number [facility] TB documented in this encounter Visit Diagnoses Not on filedocumented in this encounter Care Teams Team MemberRelationshipSpecialtyStart DateEnd Date Julian Carroll MD [address] [place] [address] PCP - GeneralFamily Qbryuoed95/1/25documented as of this encounter
--- OUTSIDE RECORDS SUMMARY | 2025-10-18 07:26 | XMS_ITS | Encounter Summary ---
Author Organization [facility] Address [address] [place] [address] Care Team Providers Care Card Clothier Name Role Phone Julian Carroll MD Primary Care Provider [phone] Encounter Details DateTypeDepartmentCare Team (Latest Contact Info)Rvwaoqmhaqh02/02/2025amboo flowsheet [facility] [address] [place] [address] Carina Smith MD [address] [place], [place] [address] Social History Tobacco UseTypesPacks/DayYears UsedDateSmoking Tobacco: NeverSmokeless Tobacco: NeverSex and Gender InformationValueDate RecordedSex Assigned at BirthNot on fileLegal PmeValv3801/27/2023 6:48 PM EDTGender IdentityNot on fileSexual OrientationNot on filedocumented as of this encounter Plan of Treatment Not on file documented as of this encounter Visit Diagnoses Not on filedocumented in this encounter Care Teams Team MemberRelationshipSpecialtyStart DateEnd Date Julian Carroll MD [address] [place] [address] PCP - GeneralFamily Xzozmqzs29/1/25documented as of this encounter
--- OUTSIDE RECORDS SUMMARY | 2025-10-18 07:26 | XMS_ITS | Encounter Summary ---
Author Organization [facility] Address [address] [place] [address] Care Team Providers Care Cafeteria Operator Name Role Phone Julian Carroll MD Primary Care Provider [phone] Encounter Details DateTypeDepartmentCare Team (Latest Contact Info)Dcufswcfpgj68/01/2025Orders Only [facility] [address] [place] [address] Unallocated, [facility] Provider, [address] [place], [place] [address] Social History Tobacco UseTypesPacks/DayYears UsedDateSmoking Tobacco: NeverSmokeless Tobacco: NeverSex and Gender InformationValueDate RecordedSex Assigned at BirthNot on fileLegal JucLdmy9301/27/2023 6:48 PM EDTGender IdentityNot on fileSexual OrientationNot on filedocumented as of this encounter Plan of Treatment Not on file documented as of this encounter Visit Diagnoses Not on filedocumented in this encounter Care Teams Team MemberRelationshipSpecialtyStart DateEnd Date Julian Carroll MD [address] [place] [address] PCP - GeneralFamily Cipbtped83/1/25documented as of this encounter
--- OUTSIDE RECORDS SUMMARY | 2025-10-18 07:26 | XMS_ITS | Encounter Summary ---
Author Organization [facility] tem Address [facility] [address] [place] [address] Care Team Providers Care Metal Machine Operator Name Role Phone Julian Carroll MD Primary Care Provider [phone] Encounter Details DateTypeDepartmentCare Team (Latest Contact Info)Hqvczjiwaey70/25/2025Travel Social History Tobacco UseTypesPacks/DayYears UsedDateSmoking Tobacco: NeverSmokeless Tobacco: NeverAlcohol UseStandard Drinks/WeekCommentsNever0 (1 standard drink = 0.6 oz pure alcohol)AUDIT-CAnswerDate RecordedFrequency of Alcohol ConsumptionNever 08/03/2019Average Number of DrinksNot on file08/03/2019Frequency of Binge DrinkingNot on file08/03/2019ChildcareAnswerDate RecordedChildcareUnknown 04/24/2019EmploymentAnswerDate XdknbcvlNvhxbkcgmnOjsrhim85/10/2019Hunger ScreeningAnswerDate RecordedWithin the past 12 months we worried whether our food would run out before we got money to buy more.Never True10/09/2025Within the past 12 months the food we bought just didn't last and we didn't have money to get more.Never True10/09/2025Purpose - LifeAnswerDate RecordedPurpose and direction in iftjCbbuada22/10/2021Sex and Gender InformationValueDate Recorded Sex Assigned at BirthNot on fileLegal MntFgmp9806/18/2015 2:22 PM EDTGender IdentityNot on fileSexual OrientationNot on filedocumented as of this encounter Plan of Treatment Not on file documented as of this encounter Visit Diagnoses Not on filedocumented in this encounter Care Teams Team MemberRelationshipSpecialtyStart DateEnd Date Julian Carroll MD [address] [place] [address] PCP - GeneralFamily Medicine07/21/19documented as of this encounter
[2025-10-18] MEDS: OXYMETAZOLINE HCL 0.05% NASAL SPRAY 30 SPRAY NS (09:20)
--- NOTE | 2025-10-18 09:53 | PC.NURSE ---
Patient denies nausea and pain and states this is the best he has felt in a week.
== END 2025-10-18 10:40 | disposition home or self-care (01) ==
PROVIDERS: PCP Family Medicine; Visit Provider Otolaryngology
PROC: (CPT 00160; principal; 2025-10-18 08:45)
DX: S02.2XXA Fracture of nasal bones, initial encounter for closed fracture (principal); W19.XXXA Unspecified fall, initial encounter; I10 Essential (primary) hypertension
CPT/HCPCS: 00160; 21320; J1100; J2250; J2405; J2704; J3010

== ENCOUNTER 2025-10-24 08:49 | Outpatient (OUT) | payer OTHER, SELFPAY | END 2025-10-24 08:50 | disposition home or self-care (01) | LOC: CARD 08:49 | PROVIDERS: PCP Family Medicine; Visit Provider Family Medicine | DX: R00.1 Bradycardia, unspecified (principal); R55 Syncope and collapse | CPT/HCPCS: 93242 ==